=== PATIENT | male | born 1970 | race Caucasian/White ===

== ENCOUNTER 2018-09-04 23:05 | Emergency (ER) | payer OTHER ==
[~2018-09-04] VITALS: Ht 190.5 cm; Wt 118.5 kg
[2018-09-04 23:18] VITALS: BP 136/87
[2018-09-05] MEDS ORDERED: FLUORESCEIN OPHTH TEST STRIP. OS ONE (00:30)
[2018-09-05] MEDS ORDERED: TETRACAINE 0.5% OPHTH SOLUTION 4ML BOTTLE. OS ONE (00:30)
[2018-09-05] MEDS ORDERED: ERYTHROMYCIN 0.5% OPHTH OINTMENT 1GM TUBE. OS ONE (00:30)
[2018-09-05] MEDS ORDERED: ERYT1OIN6 OP (00:45)
--- NOTE | 2018-09-05 00:46 | PHYS DOC ---
Past Medical History Past Medical History: No Pertinent History Past Surgical History: No Surgical History Additional Information: Nonsmoker Alcohol Use: None Drug Use: None Adult General Chief Complaint Chief Complaint: FOREIGN BODY/EYES HPI HPI 47-year-old male presents with report of using an air compressor to blow some metal shavings at his home a few hours ago. Patient reports he was wearing his normal glasses. Reports felt foreign body to left eye. Patient reports he tried washing his eye out with continued foreign body sensation. Denies visual changes. Review of Systems Review of Systems Constitutional: Denies fever or chills Eyes: Reports redness and pain HENT: Denies nasal congestion or sore throat Integument: Denies rash or skin lesions Neurologic: Denies headache, focal weakness or sensory changes Complete systems were reviewed and found to be within normal limits, except as documented in this note. Current Medications Current Medications Current Medications Medications (Trade) Dose Ordered Sig/Ramón Start Time Stop Time Status Last Admin Dose Admin Erythromycin (Romycin) 0.25 inch 1X ONCE 09/05/18 00:30 09/05/18 00:31 DC 09/05/18 00:20 0.25 INCH Fluorescein Sodium (Ful-Nicolle) 1 strip 1X ONCE 09/05/18 00:30 09/05/18 00:31 DC 09/05/18 00:20 1 STRIP Tetracaine HCl (Tetracaine) 2 drop 1X ONCE 09/05/18 00:30 09/05/18 00:31 DC 09/05/18 00:20 2 DROP Allergies Allergies Allergies Coded Allergies Type Severity Reaction Last Updated Verified No Known Drug Allergies 09/04/18 No Physical Exam Physical Exam Constitutional: Well developed, well nourished, no acute distress, non-toxic appearance HENT: Normocephalic, atraumatic, oropharynx moist Eyes: PERRL, EOMI, left conjunctiva injected, no discharge, fluorescein uptake noted with metallic foreign body with rust ring at 12 o'clock position Neck: Normal range of motion, no tenderness, supple Lungs & Thorax: No respiratory distress, atraumatic Skin: Warm, dry, no erythema, no rash Neurologic: Alert and oriented X 3, speech normal Psychologic: Affect normal, judgement normal Current Patient Data Vital Signs Vital Signs Date Time Temp Pulse Resp B/P (MAP) Pulse Ox O2 Delivery O2 Flow Rate FiO2 09/04/18 23:18 98.5 94 18 136/87 (103) 97 Room Air 98.5 EKG EKG [] Radiology/Procedures Radiology/Procedures [] Course & Med Decision Making Course & Med Decision Making Patient presents with history of present illness and physical exam consistent for metallic foreign body to left cornea. Slit lamp exam performed with removal of foreign body and rust ring with ophthalmic genoveva. Empiric ophthalmic antibiotic ointment applied. Patient stable for discharge with outpatient follow-up with PCP/manuscripts curator. Ophthalmology referral provided. Discussed findings and plan with patient, who acknowledges understanding and agreement. Dragon Disclaimer Dragon Disclaimer This electronic medical record was generated, in whole or in part, using a voice recognition dictation system. Departure Departure Impression: Primary Impression: Corneal foreign body Additional Impression: Corneal rust ring of left eye Disposition: HOME, SELF-CARE Condition: IMPROVED Referrals: MALI WHITE MD (PCP) Sourav TOTH MD Patient Instructions: Eye - Corneal Foreign Body Scripts Erythromycin Base (Erythromycin) 1 Gm Oint...g. 0.5 INCH OP QID for 5 Days, #1 TUBE Prov: SCOTT STOUT DO 09/05/18 Slit Lamp Exam Procedure Indication: Left corneal foreign body Procedure: The patient was placed in the appropriate position. Anesthesia was obtained with tetracaine. Fluorescein staining was performed with uptake around metallic foreign body with rust ring at 12 o'clock position. Ophthalmic bur utilized with successful removal of both metallic foreign body and rust ring. The patient tolerated the procedure well and without difficulty. Empiric ophthalmic antibiotic applied. Complications: None Problem Qualifiers Primary Impression: Corneal foreign body Encounter type: initial encounter Laterality: left Qualified Codes: T15.02XA - Foreign body in cornea, left eye, initial encounter SCOTT STOUT DO September 05, 2018 00:46
== END 2018-09-05 00:50 | disposition home or self-care (01) ==
LOC: ER 23:05
DX: T15.02XA Foreign body in cornea, left eye, initial encounter (principal); H16.022 Ring corneal ulcer, left eye; X58.XXXA Exposure to other specified factors, initial encounter; Y93.89 Activity, other specified; Y92.009 Unspecified place in unspecified non-institutional (private) residence as the place of occurrence of the external cause; Y99.8 Other external cause status
CPT/HCPCS: 65222; 99284

== ENCOUNTER → 2019-09-26 | Outpatient (CLI) | payer OTHER ==
[~2019-09-26] MED LIST: ERYT1OIN6 OP
--- NOTE | 2019-09-26 14:45 | RAD ---
Orbits 2 views INDICATION: History of metal in the eyes. MRI clearance. FINDINGS: Frontal and lateral views of the orbits show no radiopaque foreign body suspicious for metallic fragments. Paranasal sinuses appear well aerated as do the mastoids. No acute or aggressive appearing osseous lesions noted. Dental fillings are present in the maxillary and mandibular teeth. IMPRESSION: No radiopaque foreign body in the orbits are seen. Electronically signed by: Leonardo Millard MD (09/26/2019 2:42 PM) [id number]
--- NOTE | 2019-09-26 16:06 | RAD ---
MR of the right shoulder and MR of the left shoulder HISTORY: Bilateral shoulder pain. Bilateral rotator cuff pain. TECHNIQUE: Routine multiplanar sequences are obtained separately through shoulder. Right shoulder: Mild motion degradation. Acromioclavicular joint is mildly degenerative with hypertrophy. Mild fluid within the joint. Slight undersurface mass effect. Rotator cuff tendinosis. Partial-thickness tear of the articular surface of the supraspinatus tendon at the anterior footprint, measuring 90 percent deep and about 1 cm AP diameter. Coronal series 6, image 11. There is slight retraction of the articular side fibers, about 1 cm. There appears to be some milder partial thickness articular surface tearing at the infraspinatus tendon but this may be exaggerated by some motion degradation. No evidence of a complete full-thickness rupture of the supraspinatus or infraspinatus tendon. Trace fluid in the subdeltoid bursa. Subscapularis tendinosis with partial tearing. No advanced rotator cuff muscle atrophy. No significant glenohumeral joint effusion. Glenohumeral joint DJD with chondral thinning and mild subchondral glenoid cyst. Abnormal signal within the posterosuperior labrum suspicious for a degenerative tear. There is also some similar signal within the anteroinferior labrum. Slight biceps tendinosis. Mild cystic changes at the greater tuberosity, likely related to chronic rotator cuff arthropathy. No acute fracture. No aggressive bone destruction. IMPRESSION: 1. Small but very deep articular side tear of the anterior supraspinatus tendon footprint. Probable additional area of subcentimeter articular side tearing of the infraspinatus tendon. Partial subscapularis tendon tear. 2. Signal within the labrum, suspicious for a posterosuperior and probable anteroinferior labral degenerative tear. 3. DJD. Electronically signed by: Anoop Kong MD (09/26/2019 4:03 PM) [id number]
== END | disposition home or self-care (01) ==
LOC: MRI 14:07
PROVIDERS: ATTEND Orthopaedic Surgery
DX: M19.012 Primary osteoarthritis, left shoulder (principal); S46.012A Strain of muscle(s) and tendon(s) of the rotator cuff of left shoulder, initial encounter; X58.XXXA Exposure to other specified factors, initial encounter; Y93.89 Activity, other specified; Y92.89 Other specified places as the place of occurrence of the external cause; Y99.8 Other external cause status; M94.212 Chondromalacia, left shoulder
CPT/HCPCS: 70250; 73221

== ENCOUNTER → 2019-10-26 | Outpatient (CLI) | payer OTHER ==
[~2019-10-26] MED LIST changes: +OXYC1TAB15 PO; +PROM25TA10 PO
== END | disposition home or self-care (01) ==
LOC: LAB 13:00
PROVIDERS: ATTEND Orthopaedic Surgery
DX: Z01.818 Encounter for other preprocedural examination (principal); Z11.59 Encounter for screening for other viral diseases; M75.112 Incomplete rotator cuff tear or rupture of left shoulder, not specified as traumatic; G56.03 Carpal tunnel syndrome, bilateral upper limbs
CPT/HCPCS: C9803; U0003

== ENCOUNTER 2019-10-31 05:59 | Day surgery (SDC) | payer OTHER ==
[~2019-10-31] VITALS: Ht 184.2 cm; Wt 125.2 kg
[~2019-10-31 05:59] MED LIST changes: -OXYC1TAB15 PO; -PROM25TA10 PO
[2019-10-31] MEDS ORDERED: ceFAZolin SODIUM 3 GM in IV DEXTROSE 5% 100ML 100 ML IV PRN (06:00)
[2019-10-31] MEDS ORDERED: LIDOCAINE 2% PF 5 ML VIAL. ONE (06:24)
[2019-10-31] MEDS ORDERED: DEXAMETHASONE SOD PHOS 4 MG/ML VIAL ONE (06:24)
[2019-10-31] MEDS ORDERED: PROPOFOL 10 MG/ML (20ML) VIAL. IV ONE (06:24)
[2019-10-31] MEDS ORDERED: ONDANSETRON PF 4 MG/2 ML VIAL. ONE (06:24)
[2019-10-31] MEDS ORDERED: ROCURONIUM 50 MG/5 ML VIAL. ONE (06:25)
[2019-10-31] MEDS ORDERED: PHENYLEPHRINE in 0.9% NACL PF 1 MG/10 ML SYRINGE. IV ONE (06:25)
[2019-10-31] MEDS ORDERED: ONDANSETRON PF 4 MG/2 ML VIAL. IV PRN (07:00)
[2019-10-31] MEDS ORDERED: HYDROmorphone 2 MG/ML VIAL IV PRN (07:00)
[2019-10-31] MEDS ORDERED: MORPHINE SULFATE 2 MG/ML VIAL. IV PRN (07:00)
[2019-10-31] MEDS ORDERED: PROCHLORPERAZINE 10 MG/2 ML VIAL. IV PRN (07:00)
[2019-10-31] MEDS ORDERED: IV RINGERS,LACTATED 1000ML 1,000 ML IV SCH (07:00)
[2019-10-31] MEDS ORDERED: LIDOCAINE 1% PF 2 ML VIAL. ID PRN (07:00)
[2019-10-31] MEDS ORDERED: fentaNYL PF VIAL 100 MCG/2 ML VIAL IV PRN (07:00)
[2019-10-31] MEDS ORDERED: fentaNYL PF VIAL 100 MCG/2 ML VIAL ONE ×4 (07:13→10:31)
[2019-10-31] MEDS ORDERED: MIDAZOLAM HCL/PF 2 MG/2 ML VIAL. ONE (07:14)
[2019-10-31] MEDS ORDERED: EPINEPHrine VIAL 30 MG/30 ML VIAL ONE (07:30)
[2019-10-31] MEDS ORDERED: BUPIVACAINE-EPI 0.25%-1:200000 MPF 30 ML VIAL. ONE ×2 (07:31)
[2019-10-31] MEDS ORDERED: PHENYLEPHRINE 10 MG/ML VIAL. ONE (08:06)
[2019-10-31] MEDS ORDERED: ePHEDrine PF IN SALINE 50 MG/10 ML SYRINGE. IV ONE (08:10)
[2019-10-31] MEDS ORDERED: ceFAZolin SODIUM IV Push 1 GM VIAL. IVP ONE ×2 (08:27)
[2019-10-31] MEDS ORDERED: NEOSTIGMINE METHYLSULFATE 5 MG/5 ML SYRINGE. ONE (09:28)
[2019-10-31] MEDS ORDERED: GLYCOPYRROLATE 1 MG/5 ML VIAL. ONE (09:28)
[2019-10-31] MEDS: fentaNYL PF VIAL 100 MCG/2 ML VIAL IV PRN ×2 (10:45→11:15)
[2019-10-31] MEDS ORDERED: oxyCODONE/APAP 5/325 1 TAB TABLET ONE (11:02)
--- NOTE | 2019-10-31 11:03 | PDOC4 ---
Operative Note Operative Note Date of Procedure: October 26, 2019 Pre-Op Diagnosis: Incomplete rotator cuff tear or rupture of left shoulder, not specified as traumatic 2020 ICD-10-CM Diagnosis Code M75.112 Degenerative labral tear ICD 10 impingement syndrome of left shoulder 2020 ICD-10-CM Diagnosis Code M75.42 Superior glenoid labrum lesion of left shoulder, initial encounter 2019 ICD-10-CM Diagnosis Code S43.432A Left wrist carpal tunnel syndrome G56.02 Post-Op Diagnosis: Incomplete rotator cuff tear or rupture of left shoulder, not specified as traumatic 2020 ICD-10-CM Diagnosis Code M75.112 Degenerative labral tear ICD 10 impingement syndrome of left shoulder 2019 ICD-10-CM Diagnosis Code M75.42 Superior glenoid labrum lesion of left shoulder, initial encounter 2019 ICD-10-CM Diagnosis Code S43.432A Left wrist carpal tunnel syndrome G56.02 Procedure: Left shoulder, repair of ruptured musculotendinous cuff (rotator cuff) open, chronic CPT 91107 Arthroscopy, shoulder, surgical; debridement, extensive CPT 68337 Arthroscopy, shoulder, surgical; distal claviculectomy including distal articul ar surface (Bruno procedure) CPT 14148 Arthroscopy, shoulder, surgical; decompression of subacromial space with partial acromioplasty CPT 27990 Neuroplasty median nerve at carpal tunnel (carpal tunnel release), left wrist CPT 21976 Surgeon: Emma Fowler MD Lard Bleacher: EDSON Amanda Anesthesia: General EBL: 200 mL Specimens Obtained: none Complications: none Drains: none Findings: High-grade partial tear of the distal supraspinatus tendon, chronic appearance. The biceps tendon looked healthy on the arthroscopic view, and I could detect no partial tearing or tendinitis. The distal clavicle was prominent and arthritic in nature, causing impingement. Implants: Arthrex swivel lock anchors 4.75 mm x 4 Indications for Procedure: Quentin is a 48-year-old with bilateral shoulder pain and elbow/hand pain. 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 Patient describes bilateral shoulder pain exacerbated sleeping on his shoulders and reaching although he denies any pain holding a gallon of milk. He does note some pain while working although his pain is not related to his job. MRI shows Small but very deep articular side tear of the anterior supraspinatus tendon footprint. Signal within the labrum, suspicious for a posterosuperior and probable anteroinferior labral degenerative tear. I recommended arthroscopy, subacromial decompression, possible biceps tenodesis, distal clavicle excision, rotator cuff repair, and other potential procedures such as a labral debridement. He also should have a carpal tunnel release and we discussed the risks and benefits of that. We discussed potential risks of surgery such as stiffness, re-tear, continued pain, infection, neurovascular injury, or other potential surgical or anesthetic complications. All of his questions about surgery were answered and he desired to proceed. A written consent was obtained. Procedure in Detail: The patient was identified in the preoperative holding area. The correct left shoulder was marked by me. The patient was taken to the operating room where general anesthesia was used. The patient was positioned in the beachchair position with the bony prominences well-padded and the eyes protected. Preoperative antibiotics were given intravenously. A timeout pr ocedure was performed. Under sterile technique 25 mL of bupivacaine with epinephrine was injected into the subacromial space and glenohumeral joint. The limb was then thoroughly prepared with surgical ChloraPrep solution circumferentially. Sterile waterproof arthroscopy shoulder drapes were applied, along with an impervious stockinette over the arm. Posterior, posterolateral, lateral, and anterior arthroscopy portals were used. The glenohumeral joint showed normal articular surfaces. The biceps tendon was palpated with the shaver, and retracted into the joint, and all of the biceps tendon that I can visualize appears normal. It also does not appear dislocated when viewed arthroscopically. I saw no evidence for need for debridement or tenodesis. There are extensive degenerative changes of the posterior and anterior labrum and I did a shaving debridement. The distal portion of the supraspinatus is nearly detached from the humeral head, and the footprint is exposed. This is a high-grade partial-thickness tear, probably 90% of the thickness of the distal supraspinatus. The subacromial space was entered. The anterior acromion was prominent and the subacromial space was narrowed. The ConMed Edge thermal energy bipolar device was used for hemostasis and to resect the undersurface periosteum exposing the prominent anterior acromion. A 6.0 mm oval genoveva was used for the acromioplasty. A three-stage acromioplasty was performed, with the genoveva first laterally, removing anterior acromion, using the distal clavicle as a reference. The genoveva was then placed in the posterior portal, and a cutting block technique was used for smoothing of the lateral edge of the acromion tapering the anterior acromion into a Bigliani type I configuration. Final smoothing of the acromion was performed with the genoveva again in the lateral portal, and direct arthroscopic visualization. The previously very tight subacromial space was now decompressed. No further impingement appears to be occurring from the acromion, however the arthritic distal clavicle is degenerative with an osteoarthritic distal clavicle articular surface. The genoveva was used to resect the entire articular surface of the distal clavicle and 10 mm of distal clavicle bone, completing the [place] arthroscopic distal clavicle excision. The arthroscopic instruments were removed. Antibiotics were redosed. Outer gloves were changed. The skin was prepared a second time with ChloraPrep solution. An anterior lateral deltoid raphae splinting incision was used. Care was made not to extend more than 4 cm distally so as to avoid axillary nerve injury. Self-retaining retractors were placed. My assistant purchasing manager used an [facility] retractor in addition to the self-retaining retractors. I visualized and palpated the upper subscapularis tendon and found no defect or tear. I had visualized the same area arthroscopically and it also appears unremarkable. I did not feel that repair of the upper subscap was needed. The palpation of the rotator cuff shows a high-grade partial-thickness tear of the anterior supraspinatus. I mobilized the cuff using a 15 blade scalpel, to complete the tear and expose the footprint. The motorized bur was used to decorticate the supraspinatus footprint, and create a "crimson duvet". The 2 medial 4.75 mm swivel lock anchors with swaged suture tapes were used. All of the medial sutures were deployed with Arthrex scorpion device, about 16 mm from the distal edge of the cuff. The medial mattress sutures were secured and tied, and Alexei my assistant purchasing manager held tension reducing the cuff while the sutures were tied. The swaged suture tapes were then trimmed, the tapes were crossed, and the 2 lateral row anchors were now placed at the lateral aspect of the footprint for secure speed bridge repair. The additional sutures from the lateral row anchors were used anteriorly and posteriorly to secure the edges of the dog ear of the tear. A secure and tension-free repair was obtained. The shoulder was taken through a range of motion, and the repair security confirmed. Copious saline irrigation was used. I closed the fascia of the deltoid with #0 Vicryl suture in a [id number] fashion. My assistant purchasing manager Sinan then completed the subcutaneous closure with 2-0 Vicryl. He repaired the skin with #3-0 Prolene. He injected an additional 30 mL of bupivacaine with epinephrine. A sterile tourniquet was placed on the upper arm. An Esmarch bandage was used to exsanguinate the limb and the tourniquet was inflated to 250 mmHg. A curvilinear incision was made with a 15 blade scalpel, 2mm ulnar to the thenar crease, using landmarks including the thenar crease, Kaplans cardinal line, the ulnar border of the fingernail of the ring finger, the wrist flexion crease, and the palmaris longus tendon. Care was made not to extend this incision beyond Kaplans cardinal line, so as to avoid arterial injury. Loupe magnification (3.5x extended field) was used throughout to prevent neurovascular injury. Sharp dissection was used through the subcutaneous tissues, and the palmaris longus tendon was retracted toward the thumb. Bipolar electrocautery was used for hemostasis. The transverse carpal ligament was identified and was divided under direct vision proximally and distally. Scissor dissection was used proximal to the wrist flexion crease to complete the proximal release of the transverse carpal ligament with the skin elevated away from the dissection. Digital palpation was used proximally and distally, ensuring a complete release. A gentle scissor neuroplasty was now performed along the ulnar aspect of the median nerve, releasing dense adhesions and dense synovium. The [Keywords] median nerve was thinned. Care was made not to injure the motor branch on the radial aspect. Copious saline irrigation was used. The tourniquet was released. Bipolar electrocautery was used for hemostasis. The skin edges were injected with 0.25% bupivacaine with epinephrine. The skin edges were reapproximated with 3-0 Prolene horizontal mattress sutures. Alexei placed Xeroform and bulky sterile dressings on all of the incisions. He then applied a DonJoy UltraSling. There were no apparent complications. Needle and sponge counts were correct. EMMA FOWLER MD Oct 31, 2019 11:02
[2019-10-31 11:10] VITALS: BP 157/84
[2019-10-31] MEDS ORDERED: oxyCODONE/APAP 5/325 1 TAB TABLET PO PRN ×2 (11:15)
[2019-10-31] MEDS ORDERED: OXYC1TAB15 PO (11:20)
[2019-10-31] MEDS ORDERED: PROM25TA10 PO (11:22)
[2019-10-31] MEDS ORDERED: oxyCODONE/APAP 5/325 1 TAB TABLET PO ONE (11:30)
== END 2019-10-31 12:10 | disposition home or self-care (01) ==
LOC: SURG 05:59
PROVIDERS: ATTEND Orthopaedic Surgery
DX: S43.432A Superior glenoid labrum lesion of left shoulder, initial encounter (principal); M75.112 Incomplete rotator cuff tear or rupture of left shoulder, not specified as traumatic; M75.42 Impingement syndrome of left shoulder; G56.02 Carpal tunnel syndrome, left upper limb; X58.XXXA Exposure to other specified factors, initial encounter; Y93.89 Activity, other specified; Y92.89 Other specified places as the place of occurrence of the external cause; Y99.8 Other external cause status; Z79.899 Other long term (current) drug therapy
CPT/HCPCS: 23412; 29823; 29824; 29826; 64721; A7015; C1713; J0171; J0690; J1100; J2250; J2370; J2405; J2704; J2710; J3010; J3490; J7120; A4623

== ENCOUNTER → 2020-05-07 | Outpatient (CLI) | payer OTHER ==
[~2020-05-07] MED LIST changes: +OXYC1TAB15 PO; +PROM25TA10 PO
--- NOTE | 2020-05-07 16:16 | KCIC ---
Examination: MRI of the right shoulder without contrast HISTORY: History of right shoulder pain, injury COMPARISON: None available. TECHNIQUE: Multiplanar, multisequence MR imaging of the right shoulder without contrast. FINDINGS: The long head of the biceps tendon within the bicipital groove. The attachment of the long head the b iceps tendon to the superior labral anchor grossly appears intact. There is moderate increased T2 sig nal identified in the subscapularis, supraspinatus tendon likely tendinosis. There is full-thickness tear of the supraspinatus tendon measuring 1.3 cm with extension of fluid in the subacromial subdelto id bursa. The muscle bulk grossly appears unremarkable. Minimal increased signal identified in the la roney likely degenerative changes. The acromion is type II. Moderate joint space loss identified in the glenohumeral joint, acromioclavi cular joint There is a obscuration of fat in the rotator interval. IMPRESSION: 1. Full-thickness tear of the supraspinatus tendon measuring 1.3 cm with extension of fluid in the s ubacromial subdeltoid bursa. 2. Moderate tendinosis of the rotator cuff. 3. Moderate degenerative changes glenohumeral joint, acromioclavicular joint. 4. There is a obscuration of fat in the rotator interval. Correlate for adhesive capsulitis. Electronically signed by: Navi Vora MD (05/07/2020 4:14 PM) [id number]
== END ==
LOC: KCIC MRI 08:25
PROVIDERS: ATTEND Orthopaedic Surgery
DX: M19.011 Primary osteoarthritis, right shoulder (principal); M75.101 Unspecified rotator cuff tear or rupture of right shoulder, not specified as traumatic
CPT/HCPCS: 73221

== ENCOUNTER → 2021-02-27 | Outpatient (CLI) | payer OTHER | LOC: LAB 14:37 | PROVIDERS: ATTEND Surgery | DX: Z01.812 Encounter for preprocedural laboratory examination (principal); U07.1 COVID-19; K40.90 Unilateral inguinal hernia, without obstruction or gangrene, not specified as recurrent | CPT/HCPCS: U0003; U0005 ==

== ENCOUNTER 2021-03-30 07:55 | Day surgery (SDC) | payer OTHER ==
[~2021-03-30] VITALS: Ht 190.5 cm; Wt 127.0 kg
[~2021-03-30 07:55] MED LIST changes: +BUPIVACAINE-EPI 0.5% 30 ML VIAL KIT. ONE; +CELE200C PO; +HYDROmorphone 2 MG/ML VIAL IVP PRN; +IBUP1TAB84 PO; +IV RINGERS,LACTATED 1000ML 1,000 ML IV SCH; +MORPHINE SULFATE 2 MG/ML INJ. IVP PRN; +PROCHLORPERAZINE 10 MG/2 ML VIAL. IVP PRN; +ceFAZolin SODIUM 3 GM in IV DEXTROSE 5% 100ML 100 ML IV PRN; +fentaNYL PF VIAL 100 MCG/2 ML VIAL IVP PRN
[2021-03-30 08:25] VITALS: BP 160/97
[2021-03-30] MEDS ORDERED: SUCCINYLCHOLINE 200 MG/10 ML VIAL. ONE (08:44)
[2021-03-30] MEDS ORDERED: ROCURONIUM 50 MG/5 ML VIAL. ONE ×2 (08:44→10:41)
[2021-03-30] MEDS ORDERED: fentaNYL PF VIAL 100 MCG/2 ML VIAL ONE (08:44)
[2021-03-30] MEDS ORDERED: LIDOCAINE 2% PF 5 ML VIAL. ONE (08:45)
[2021-03-30] MEDS ORDERED: ONDANSETRON PF 4 MG/2 ML VIAL. ONE (08:45)
[2021-03-30] MEDS ORDERED: KETOROLAC 30 MG/ML VIAL. ONE (08:45)
[2021-03-30] MEDS ORDERED: DEXAMETHASONE SOD PHOS 20 MG/5 ML VIAL. ONE (08:45)
[2021-03-30] MEDS ORDERED: PROPOFOL 10 MG/ML (20ML) VIAL. IV ONE (08:45)
[2021-03-30] MEDS ORDERED: SEVOFLURANE 61 TO 120 MINUTES. IH ONE (10:00)
[2021-03-30] MEDS ORDERED: NEOSTIGMINE 10 MG/10 ML VIAL. ONE (10:16)
[2021-03-30] MEDS ORDERED: GLYCOPYRROLATE 1 MG/5 ML VIAL. ONE (10:17)
[2021-03-30] MEDS ORDERED: HYDROmorphone 2 MG/ML VIAL ONE (11:34)
[2021-03-30] MEDS ORDERED: OXYC-325 PO (12:03)
--- NOTE | 2021-03-30 12:06 | DISCH ---
DISCHARGE INSTRUCTIONS Condition on Discharge Condition on Discharge: Stable Activity After Discharge Activity Instructions for Disc: Other, see below (no lifting over 20 lbs X 4 weeks) Driving Instructions after Dis: Other, see below (No driving while taking pain meds) Diet after Discharge Diet after Discharge: Regular Follow-Up Follow up with: Dr Queen in office in 2 weeks, call for appointment [phone] KENTON QUEEN MD Mar 30, 2021 12:05
--- NOTE | 2021-03-30 12:10 | PDOC4 ---
Operative Note Operative Note Operative Note: Preoperative Diagnosis: Left inguinal hernia, umbilical hernia Postoperative Diagnosis: Same Procedure: Left inguinal hernia repair with mesh, umbilical hernia repair with mesh Surgeon: Bhupinder Folding Machine Tender: Brenda FONG Anesthesia: General EBL: 20 mL Specimen: Left inguinal cord lipoma to pathology Drains: None Complications: None Indication: The patient is a 50-year-old male presented with both a left inguin al hernia and umbilical hernia. He was offered surgical treatment. The risks of surgery were discussed which include bleeding, infection, recurrence, pain, anesthetic risk, potential need for additional surgery procedure. He understands and would like to proceed. Description: The patient was taken to the operating and placed supine on the operating table. General anesthesia was performed. The abdomen and left groin were shaved and prepped with ChloraPrep and draped with sterile towels, sheets, and an Ioban. Starting in the left groin incision was made with a scalpel. Cautery dissection was carried down to the external bleak aponeurosis. The aponeurosis was opened down to the external ring. The contents of the inguinal canal were digitally mobilized and encircled with a Anali drain. The patient had a very large cord lipoma which was excised and the LigaSure device assisted with this. This was sent to pathology. The vas deferens and other cord structures were identified and preserved. There is a moderate sized indirect hernia sac which was identified. This was mobilized and fully reduced. The defect was filled with an extra-large Phasix mesh plug. The plug was sutured into position with 2-0 Vicryl. The inguinal floor was then reinforced with a Prolene mesh patch. The mesh was sutured in position with 2-0 Vicryl. A slit was made to accommodate the cord structures. The external oblique was closed over the mesh with 2-0 Vicryl. Subcutaneous tissue was approximated with 3-0 Vicryl. Skin was closed with 4-0 Monocryl. We then directed our attention to the umbilicus. A curved infraumbilical incision was made in the skin with a scalpel. Cautery dissection was carried down to the fascia. The umbilical tissue was elevated off the fascia exposing 2 separate hernia defects. The fascial bridge in between was cut creating a single defect. A preperitoneal plane was developed with combination of blunt and cautery dissection. A large Ventralex ST mesh was then placed in this preperitoneal plane. The mesh was sutured at the 12, 3, 6, 9 o'clock position using 0 Prolene in horizontal mattress fashion. The fascia was approximated over the mesh with 0 Prolene. The umbilicus was secured back to the fascia with 0 Vicryl. The subcutaneous tissue was closed with 3-0 Vicryl. Skin was approximated with 4-0 Monocryl. Steri-Strips and a sterile dressing were applied. The patient tolerated the procedure well and was sent to the recovery room in stable condition. At the end the case all counts were correct. KENTON QUEEN MD Mar 30, 2021 12:10
[2021-03-30 12:43] VITALS: BP 150/84
[2021-03-30] MEDS ORDERED: oxyCODONE/APAP 5/325 1 TAB TABLET PO ONE (12:45)
[2021-03-30] MEDS ORDERED: MORPHINE SULFATE 2 MG/ML INJ. ONE (13:13)
== END 2021-03-30 13:40 | disposition home or self-care (01) ==
LOC: SURG 07:55
PROVIDERS: ATTEND Surgery
DX: K40.90 Unilateral inguinal hernia, without obstruction or gangrene, not specified as recurrent (principal); K42.9 Umbilical hernia without obstruction or gangrene; E66.9 Obesity, unspecified; M19.90 Unspecified osteoarthritis, unspecified site; Z79.899 Other long term (current) drug therapy; Z98.890 Other specified postprocedural states
CPT/HCPCS: 49505; 49585; A4364; A4930; A6402; C1781; J1100; J1170; J1885; J2270; J2405; J2704; J2710; J3010; J3490; A4452; J0330